=== PATIENT | female | born 1955 | race Caucasian/White ===

== ENCOUNTER 2017-09-28 15:04 | Emergency (ER) | payer SELFPAY ==
[~2017-09-28] VITALS: Ht 167.6 cm; Wt 66.4 kg
[2017-09-28] MEDS ORDERED: SODIUM CHLORIDE FLUSH 10ML SYR IVF ONE (16:30)
[2017-09-28 16:42] LABS: HEMATOCRIT 44.1 % (34.6-47.8); HEMOGLOBIN 14.8 g/dL (11.7-16.4); WHITE BLOOD COUNT 10.5 x10^3/uL (3.4-10)
[2017-09-28 16:54] LABS: BLOOD UREA NITROGEN 14 mg/dL (7-18)
[2017-09-28 16:57] LABS: ASPARTATE AMINO TRANSFERASE 22 U/L (15-37)
[2017-09-28 17:03] LABS: PATH.CAST-FLAG NOT PRESENT; SPERM-FLAG NOT PRESENT; SRC-FLAG NOT PRESENT; XTAL-FLAG NOT PRESENT; YLC-FLAG NOT PRESENT
[2017-09-28] MEDS ORDERED: ONDANSETRON ODT 4 MG ONE (17:20)
[2017-09-28] MEDS ORDERED: KETOROLAC 30 MG/1 ML ONE (17:20)
[2017-09-28] MEDS ORDERED: ONDANSETRON ODT 4 MG PO ONE (17:30)
[2017-09-28] MEDS ORDERED: KETOROLAC 60 MG/2 ML IM ONE (17:30)
[2017-09-28] MEDS ORDERED: HYDROcodone/APAP 5/325 TABLET PO ONE (18:30)
[2017-09-28] MEDS ORDERED: HYDROcodone/APAP 5/325 TABLET ONE (18:30)
[2017-09-28 18:33] VITALS: BP 126/78
== END 2017-09-28 18:38 | disposition home or self-care (01) ==
LOC: ED 18:32
DX: N13.2 Hydronephrosis with renal and ureteral calculous obstruction (principal); Z87.891 Personal history of nicotine dependence
CPT/HCPCS: 36415; 74176; 80053; 81001; 83690; 85025; 96372; 99285; J1885; Q0162